=== PATIENT | female | born 1955 | race Caucasian/White ===

== ENCOUNTER 2024-11-27 12:24 | Emergency (ER) | payer MEDICARE, OTHER ==
[~2024-11-27] VITALS: Ht 154.9 cm; Wt 68.0 kg
[~2024-11-27 12:24] MED LIST: ASCO500; Aspir 8181 MG; BIEST; CALCAVITD; Daily Multiple1 EACH; FISH1000; Flonase 0.05% N16 GM; GLUC500; MAGNESIUM; MILK THISTLE140 MG; NATURE-THROID97.5 MG; WP THYROID; ZYRTEC10 MG; [UNRECOGNIZED DRUG - OTHER]
[2024-11-27 13:04] LABS: BASOPHILS ABSOLUTE AUTO 0.05 K/mm3 (0.00-0.23); BASOPHILS PERCENT AUTO 1 % (0-2); EOSINOPHILS ABSOLUTE AUTO 0.06 K/mm3 (0.00-0.68); EOSINOPHILS PERCENT AUTO 1 % (0-6); Hematocrit 37.7 % (33.0-51.0); Hemoglobin 12.6 g/dL (11.5-16.0); IMMATURE GRAN ABSOLUTE AUTO 0.02 K/mm3 (0.00-0.10); IMMATURE GRAN PERCENT AUTO 0 % (0-1); LYMPHOCYTES ABSOLUTE AUTO 2.09 K/mm3 (0.84-5.20); LYMPHOCYTES PERCENT AUTO 26 % (21-46); MONOCYTES ABSOLUTE AUTO 0.44 K/mm3 (0.16-1.47); MONOCYTES PERCENT AUTO 6 % (4-13); Mean Corpuscular HGB 30.5 pg (26.0-34.0); Mean Corpuscular HGB Conc 33.4 g/dL (31.5-36.5); Mean Corpuscular Volume 91 fL (80-100); Mean Platelet Volume 10.3 fL (9.1-12.4); NEUTROPHILS ABSOLUTE AUTO 5.31 K/mm3 (1.96-9.15); NEUTROPHILS PERCENT AUTO 67 % (41-73); Platelet Count 303 K/mm3 (150-400); RDW Coefficient Variation 12.8 % (11.7-14.2); RDW Standard Deviation 42.4 fL (35.1-46.3); Red Blood Cell Count 4.13 M/mm3 (3.80-5.20); White Blood Cell Count 7.97 K/mm3 (4.00-11.30)
[2024-11-27 13:30] LABS: Albumin, Blood 3.5 g/dL (3.4-5.0); Bilirubin, Total 0.3 mg/dL (0.1-1.0); Bun/Creatinine Ratio 17.6 (12.0-20.0); Calcium, Blood 9.2 mg/dL (8.5-10.1); Creatinine, Blood 0.74 mg/dL (0.40-1.00); Globulin, Blood 3.5 g/dL (2.2-4.0)
[2024-11-27] MEDS ORDERED: LEVOTHYROXINE50 MC9 PO (15:56)
[2024-11-27] MEDS ORDERED: Premarin1.25 MG PO (15:57)
[2024-11-27] MEDS ORDERED: PROG100 PO (15:57)
[2024-11-27 16:59] LABS: Source, Urine Clean Catch
[2024-11-27 17:02] LABS: Appearance, Urine Clear (Clear); Bilirubin, Urine Neg (Neg); Blood, Urine Neg (Neg); Glucose Qualitative, Urine Neg (Neg); Ketones, Urine Neg (Neg); Leukocyte Esterase, Urine Neg (Neg); Nitrite, Urine Neg (Neg); Protein, Urine Neg (Neg); Specific Gravity, Urine 1.005 (1.003-1.022); Urobilinogen, Urine NORM (Normal)
[2024-11-27 17:04] LABS: Color, Urine Pale Yellow (P-Yellow)
[2024-11-27 17:30] VITALS: BP 144/81
== END 2024-11-27 17:32 | disposition home or self-care (01) ==
LOC: ER 12:24
PROVIDERS: Student in an Organized Health Care Education/Training Program
DX: R56.9 Unspecified convulsions (principal); Z88.2 Allergy status to sulfonamides; Z91.010 Allergy to peanuts; Z79.899 Other long term (current) drug therapy
CPT/HCPCS: 70450; 71046; 80053; 81003; 85025; 93005; 93010; 99285-25

== ENCOUNTER 2025-02-02 03:23 | Day surgery (SDC) | payer MEDICARE, OTHER ==
[~2025-02-02 03:23] MED LIST changes: +LEVOTHYROXINE50 MC9 PO; +PROG100 PO; +Premarin1.25 MG PO
[2025-02-02] MEDS ORDERED: Cosyntropin 0.25 MG / ML 1ML Vial IV ONE (07:05)
[2025-02-02 10:14] VITALS: BP 123/78
--- NOTE | 2025-02-02 11:44 | NUR ---
30 MIN LAB DRAWN FROM PERIPHERAL IV PER PROTOCOL AT 1045
--- NOTE | 2025-02-02 11:44 | NUR ---
60 MIN LAB DRAW FROM PERIPHERAL LINE PER PROTOCOL AT 1117.
[2025-02-02] MEDS ORDERED: BIJUVA 1 MG-101 EAC1 PO (11:59)
[2025-02-02] MEDS ORDERED: MULVITA PO (12:00)
[2025-02-02] MEDS ORDERED: Flonase 0.05% N16 GM (12:00)
[2025-02-02] MEDS ORDERED: MELO7.5 PO (12:00)
[2025-02-02] MEDS ORDERED: SYMBICORT 160-4.6 GM (12:00)
[2025-02-02] MEDS ORDERED: ZINC15 PO (12:01)
[2025-02-02] MEDS ORDERED: VITAMIN D33000 UNIT PO (12:01)
== END 2025-02-02 11:18 | disposition home or self-care (01) ==
LOC: ATC 03:23
DX: R42 Dizziness and giddiness (principal); I48.0 Paroxysmal atrial fibrillation; E78.5 Hyperlipidemia, unspecified; E03.9 Hypothyroidism, unspecified; Z88.2 Allergy status to sulfonamides; Z79.890 Hormone replacement therapy; Z79.899 Other long term (current) drug therapy
CPT/HCPCS: 80400; 82533; 96374; J0834